=== PATIENT | male | born 1980 | race Two or more races ===

== ENCOUNTER 2023-07-16 12:33 | Emergency (ER) | payer SELFPAY ==
[~2023-07-16] VITALS: Ht 180.3 cm; Wt 122.5 kg
[2023-07-16] MEDS ORDERED: SULF1TAB48 PO (13:28)
[2023-07-16 14:01] VITALS: BP 151/81; TEMP 98.2; O2SAT 100
== END 2023-07-16 14:02 | disposition home or self-care (01) ==
LOC: ER 12:42
DX: L02.415 Cutaneous abscess of right lower limb (principal); I10 Essential (primary) hypertension